=== PATIENT | female | born 1970 | race Caucasian/White ===

== ENCOUNTER → 2018-07-06 | Outpatient (CLI) | payer OTHER ==
--- NOTE | 2018-07-06 14:21 | RADIOLOGY IMAGING REPORT ---
FACILITY: [facility] [place] PATIENT NAME: Martine Rankin : 1970 MR: [id number] V: [id number] EXAM DATE: ORDERING PHYSICIAN: CRISTOPHER ARRINGTON TECHNOLOGIST: Location: [facility] Patient: Martine Rankin : 1970 Visit/Account:[id number] Date of Sevice: 07/06/2018 EXAMINATION: CT Lumbar spine with intradiscal contrast. HISTORY: Low back pain. COMPARISON: None available. TECHNIQUE: Axial CT of the lumbar spine following intradiscal contrast injection at L3-L4, L4-L5, and L5-S1. Sagittal and coronal reformats. One of the following dose optimization techniques was utilized in the performance of this exam: Autom ated exposure control; adjustment of the mA and/or kV according to the patient's size; or use of an i terative reconstruction technique. Specific details can be referenced in the facility's radiology C T exam operational policy. FINDINGS: Alignment: Minimal retrolisthesis of L3-L4 over L5. Vertebral bodies: Normal vertebral body height. Posterior elements: Multilevel facet hypertrophy, most severe at L5-S1. Hardware: None. Disc Spaces: Mild multilevel degenerative disc disease. Intradiscal contrast at L3-L4 extends into t he left foraminal annular fissure and small extrusion. Intradiscal contrast at L4-L5 extending into broad-based posterior disc protrusion. Intradiscal contrast at L5-S1 extends into small central and left central/foraminal protrusions. Soft tissues: Negative. Visualized retroperitoneal / abdominal structures: Large gallstone measuring up to 2 cm. No evidence of acute cholecystitis. IMPRESSION: 1. Mild multilevel degenerative disc disease and facet hypertrophy. 2. Cholelithiasis. Report Dictated By: Charlie Hogan MD at 07/06/2018 2:13 PM Report E-Signed By: Charlie Hogan MD at 07/06/2018 2:17 PM WSN:[id number]
== END ==
LOC: CT 10:31
PROVIDERS: ATTEND Physical Medicine & Rehabilitation Pain Medicine
DX: M51.37 Other intervertebral disc degeneration, lumbosacral region (principal); K80.20 Calculus of gallbladder without cholecystitis without obstruction
CPT/HCPCS: 72295